=== PATIENT | male | born 1955 | race Caucasian/White ===

== ENCOUNTER 2017-09-13 10:34 | Day surgery (SDC) | payer BC ==
[~2017-09-13 10:34] MED LIST: Buffered Lidocaine 0.9% SYRIN* 5 ML/SYR SYRINGE INTRADERM ONE; Dexamethasone IV* 4 MG/ML 1 ML (4 MG) IV SLOW PU ONE; Dexamethasone IV* 4 MG/ML 1 ML (4 MG) ONE; Famotidine IV* 10 MG/ML 2 ML (20 mg) IV ONE; Famotidine IV* 10 MG/ML 2 ML (20 mg) ONE; ceFAZolin 2 GM PREMIX (*) 2 GM/50 ML BAG IVPB ONE
[2017-09-13] MEDS ORDERED: Buffered Lidocaine 0.9% SYRIN* 5 ML/SYR SYRINGE ONE (10:35)
[2017-09-13] MEDS ORDERED: fentaNYL* 50 MCG/ML 2 ML VIAL (100 MCG VIAL) ONE (12:02)
[2017-09-13] MEDS ORDERED: Ondansetron INJ* 2 MG/ML VIAL ONE (12:03)
[2017-09-13] MEDS ORDERED: Midazolam* 1 MG/ML 5 ML VIAL (5 MG) ONE (12:03)
[2017-09-13] MEDS ORDERED: Propofol* 10 MG/ML 20 ML BTL IV PUSH ONE (12:03)
[2017-09-13] MEDS ORDERED: Lidocaine 1% MPF wEPI 200,000* 30 ML SDV ONE (12:18)
[2017-09-13] MEDS ORDERED: Bupivacaine 0.25% SDV* 30 ML ONE (12:18)
[2017-09-13] MEDS ORDERED: Methylene Blue 0.5 %* 50 MG/10 ML AMP IV ONE (12:19)
[2017-09-13] MEDS ORDERED: Mineral Oil Sterile, TOPICAL* 25 ML BTL ONE (12:20)
[2017-09-13 14:53] VITALS: BP 151/94
== END 2017-09-13 14:53 | disposition home or self-care (01) ==
LOC: OR 10:34
PROVIDERS: ATTEND Plastic Surgery
DX: C44.311 Basal cell carcinoma of skin of nose (principal); I10 Essential (primary) hypertension
CPT/HCPCS: 88305; 88331; 88332; A9270-GY; J0690; J1100; J2001; J2250; J2405; J2704; J3010

== ENCOUNTER 2018-03-12 11:07 | Emergency (ER) | payer MEDICARE, BC ==
[2018-03-12 11:32] VITALS: BP 125/87
[2018-03-12] MEDS ORDERED: Lidocaine 2% PF * 5 ML VIAL INJ ONE (12:54)
--- NOTE | 2018-03-12 20:23 | UC ---
Laceration HPI - HPI Summary HPI Summary: c/o laceration right index finger several hours ago while cutting squash. Denies constitutional symptoms. States he is up to date with tetanus vaccine. - History Of Current Complaint Chief Complaint: UCLaceration Stated Complaint: FINGER LAC Time Seen by Provider: 03/12/18 12:53 Hx Obtained From: Patient Laceration Location: Finger Mechanism Of Injury: Sharp Trauma Pain Intensity: 1 Pain Scale Used: 0-10 Numeric - Allergies/Home Medications Allergies/Adverse Reactions: Allergies Allergy/AdvReac Type Severity Reaction Status Date / Time No Known Allergies Allergy Verified 03/12/18 11:32 PMH/Surg Hx/FS Hx/Imm Hx Previously Healthy: Yes Cardiovascular History: Hypertension - Surgical History Surgical History: Yes Surgery Procedure, Year, and Place: right knee 1974, [facility] [place] - Social History Alcohol Use: Occasionally Alcohol Amount: 1 per day Substance Use Type: None Smoking Status (MU): Never Smoked Tobacco - Immunization History Most Recent Tetanus Shot: unknown, less than 10 years Review of Systems Constitutional: Negative All Other Systems Reviewed And Are Negative: Yes Physical Exam Triage Information Reviewed: Yes Appearance: Well-Appearing, No Pain Distress, Well-Nourished Vital Signs: Initial Vital Signs Temp 98.3 F 03/12/18 11:26 Pulse 72 03/12/18 11:26 Resp 16 03/12/18 11:26 BP 125/87 03/12/18 11:26 Pulse Ox 99 03/12/18 11:26 Vital Signs Reviewed: Yes Eyes: Positive: Conjunctiva Clear Cardiovascular: Positive: Pulses Normal, Brisk Capillary Refill Skin: Positive: Other - superficial semicircular laceration on tuft right index finger, no bleeding Laceration Repair - Laceration Repair 1 Description: Linear Laceration Size After Repair: Length (cm) - 1cm, Width (mm) - 4 mm, Depth (mm) - 1mm Modified For Repair: No Cleansing Completed Via Routine Prep: Yes Closure Material: Skin Adhesive, SteriStrips Laceration Course/Dx - Course/Dx Course Of Treatment: Dermabond applied, steristrips applied, wound care instruction - Differential Dx - Laceration/Wound Provider Diagnoses: Superficial laceration index finger Discharge - Sign-Out/Discharge Documenting (check all that apply): Discharge - Discharge Plan Condition: Stable Disposition: HOME Patient Education Materials: Laceration (DC) Referrals: Lance Keith MD [Primary Care Provider] - - Billing Disposition and Condition Condition: STABLE Disposition: HOME
== END 2018-03-12 14:02 | disposition home or self-care (01) ==
LOC: UCEAST 11:07
DX: S61.210A Laceration without foreign body of right index finger without damage to nail, initial encounter (principal); W26.0XXA Contact with knife, initial encounter; Y93.G1 Activity, food preparation and clean up; Y92.9 Unspecified place or not applicable; I10 Essential (primary) hypertension
CPT/HCPCS: 12001; 99211; 99212; G0463

== ENCOUNTER 2024-11-08 05:32 | Observation (INO) ==
[~2024-11-08 05:32] MED LIST changes: +Acetaminophen IV 1 GM/100ML 1,000 MG/100 ML BAG IV ONE; -Buffered Lidocaine 0.9% SYRIN* 5 ML/SYR SYRINGE INTRADERM ONE; -Dexamethasone IV* 4 MG/ML 1 ML (4 MG) IV SLOW PU ONE; -Dexamethasone IV* 4 MG/ML 1 ML (4 MG) ONE; -Famotidine IV* 10 MG/ML 2 ML (20 mg) IV ONE; -Famotidine IV* 10 MG/ML 2 ML (20 mg) ONE; +NS 0.45% 1000 ml BAG 1,000 ML IV SCH; +Naloxone 0.4 mg VIAL 0.4 mg/ml 1 ml VIAL IV PRN; +Ondansetron 4 mg VIAL 2 MG/ML 2 ml VIAL IV PRN; +ROPIVACAINE 5 MG/ML 30 ML BTL (0.5%) ONE; -ceFAZolin 2 GM PREMIX (*) 2 GM/50 ML BAG IVPB ONE; +fentaNYL 100 mcg/2 ml 50 MCG/ML VIAL IV PRN
[2024-11-08] MEDS: Buffered Lidocaine 1% SYRIN 1 ml INTRADERM ONE (05:54)
[2024-11-08] MEDS ORDERED: ceFAZolin 2 GM PREMIX 2 GM/50 ML BAG ONE (06:16)
[2024-11-08] MEDS ORDERED: Tranexamic Acid 1 GM/100ML BAG 2,000 MG/200 ML BAG IV ONE (06:16)
[2024-11-08] MEDS: Lactated Ringers 1000 ml BAG 1,000 ML IV SCH ×2 (06:22→13:56)
[2024-11-08 06:27] LABS: Rapid COVID-19 Molecular Undetected (Undetected)
[2024-11-08] MEDS ORDERED: Midazolam 2 mg/2 ml VIAL 1 mg/ml 2 ml VIAL (2 mg) ONE ×2 (06:54→07:47)
[2024-11-08] MEDS ORDERED: fentaNYL 100 mcg/2 ml 50 MCG/ML VIAL ONE (06:54)
[2024-11-08] MEDS ORDERED: Lidocaine 2% PF 5 ML VIAL ONE (06:55)
[2024-11-08] MEDS ORDERED: ROPIVACAINE 5 MG/ML 30 ML BTL (0.5%) ONE (07:16)
[2024-11-08] MEDS ORDERED: Ondansetron 4 mg VIAL 2 MG/ML 2 ml VIAL IV PRN (10:18)
[2024-11-08] MEDS ORDERED: Magnesium Hydroxide LIQ 30 ML UDC PO PRN (10:18)
[2024-11-08] MEDS ORDERED: Calcium Carb (TUMS) 500 mg CHEW TAB PO PRN (10:18)
[2024-11-08] MEDS ORDERED: Morphine 2 MG/ML SYRINGE IV PRN (10:18)
[2024-11-08] MEDS ORDERED: Ondansetron ODT 4 mg TAB 4 MG TAB PO PRN (10:18)
[2024-11-08] MEDS ORDERED: Lactulose 30 ml UDC PO PRN (10:18)
[2024-11-08 15:21] VITALS: BP 158/86
[2024-11-08] MEDS: ceFAZolin 2 GM PREMIX 2 GM/50 ML BAG IV SCH (15:58)
[2024-11-08] MEDS ORDERED: Magnesium Hydroxide LIQ 30 ML UDC PO SCH (21:00)
[2024-11-09] MEDS ORDERED: Vitamin THERAPEUTIC TAB PO SCH (09:00)
== END 2024-11-08 18:20 | disposition home or self-care (01) ==
LOC: SSU 05:32 → OR 05:32
PROVIDERS: ADMIT Orthopaedic Surgery Adult Reconstructive Orthopaedic Surgery; ATTEND Orthopaedic Surgery Adult Reconstructive Orthopaedic Surgery